=== PATIENT | female | born 1950 | race African-American/Black ===

== ENCOUNTER 2018-05-13 11:41 | Outpatient (CLI) | payer MEDICARE, OTHER ==
[~2018-05-13 11:41] MED LIST: ALLO; ALLOPURINOL; DIGOXIN; INDOCIN25 MG PO; LASIX; NORCO 5-325 TA1 EACH PO
--- NOTE | 2018-05-13 12:44 | Diagnostic Imaging Report ---
Indication: Right elbow pain Findings: 3 views of the right elbow were obtained. No acute fracture, malalignment or joint effusion is appreciated. Degenerative changes are demonstrated in the epicondylar regions bilaterally with some small fragmented calcifications noted as well as a enthesophyte formation. Periarticular osteophytes are also demonstrated. IMPRESSION: No acute injury Degenerative changes as described above
== END 2018-05-13 13:41 | disposition home or self-care (01) ==
LOC: RAD 11:41
DX: M25.521 Pain in right elbow (principal)